=== PATIENT | female | born 2000 | race Caucasian/White ===

== ENCOUNTER 2018-12-11 01:08 | Emergency (ER) | payer OTHER ==
[~2018-12-11] VITALS: Ht 160 cm; Wt 90.7 kg
[2018-12-11] MEDS ORDERED: KETO10TA2 PO (05:52)
== END 2018-12-11 05:59 | disposition home or self-care (01) ==
LOC: ER 01:08
DX: S20.212A Contusion of left front wall of thorax, initial encounter (principal); S20.211A Contusion of right front wall of thorax, initial encounter; S50.12XA Contusion of left forearm, initial encounter; V49.9XXA Car occupant (driver) (passenger) injured in unspecified traffic accident, initial encounter; Y93.89 Activity, other specified; Y92.488 Other paved roadways as the place of occurrence of the external cause; Y99.8 Other external cause status